=== PATIENT | female | born 1950 | race Caucasian/White ===

== ENCOUNTER 2017-02-15 15:57 | Observation (INO) | payer MEDICARE ==
[~2017-02-15] VITALS: Ht 167.6 cm; Wt 81.5 kg
[~2017-02-15 15:57] MED LIST: BETA20PO; BROC500T PO; CALC500T35 PO; CO Q300C PO; MULTI VITAMIMINERALS PO; [UNRECOGNIZED DRUG - OTHER] PO
[2017-02-15 16:04] VITALS: BP 199/85; PULSE 116; RESP 20; TEMP 98.9; O2SAT 98
--- NOTE | 2017-02-15 16:06 | PD ---
Physical Exam Date Seen by Provider: Feb 15, 2017 Time Seen by Provider: 16:01 Narrative 66 YOWF C/O L ARM NUMBNESS TINGLING SINCE LAST NIGHT .NO NECK PAIN. NO CP OR SOB. HERE FOR CT SCHEDULED FOR MRI AND CAROTID OUT PT. NO DM. +HTN VS REVIEWED WAITING FOR BED PLACEMENT MDM Supervised Visit with CHRISTINE: Andrés Meneses Feb 15, 2017 16:06
[2017-02-15 16:48] LABS: AUTOMATED NEUTROPHIL # 4.2 TH/MM3 (1.8-7.7); BASOPHIL # 0.1 TH/MM3 (0-0.2); BASOPHIL % 0.9 % (0.0-2.0); EOSINOPHIL # 0.1 TH/MM3 (0-0.4); EOSINOPHIL % 2.1 % (0.0-4.0); HEMATOCRIT 41.5 % (35.0-46.0); HEMO FLAGS DIFF FINAL; LYMPH % 28.2 % (9.0-44.0); LYMPHOCYTE # 1.9 TH/MM3 (1.0-4.8); MEAN CELL VOLUME 89.5 FL (80.0-100.0); MEAN CORPUSCULAR HEMOGLOBIN 29.8 PG (27.0-34.0); MEAN CORPUSCULAR HGB CONC 33.3 % (32.0-36.0); NEUT % 62.8 % (16.0-70.0); PLATELET COUNT 272 TH/MM3 (150-450); RED BLOOD COUNT 4.64 MIL/MM3 (4.00-5.30); WHITE BLOOD COUNT 6.6 TH/MM3 (4.0-11.0)
[2017-02-15 17:08] LABS: BICARBONATE 26.7 MEQ/L (21.0-32.0); POTASSIUM 3.8 MEQ/L (3.5-5.1)
--- NOTE | 2017-02-15 17:11 | RADRPT ---
EXAM DATE/TIME: 02/15/2017 17:00 [facility] COMPARISON: No previous studies available for comparison. INDICATIONS : Left arm numbness and tingling. RADIATION DOSE: 34.05 CTDIvol (mGy) MEDICAL HISTORY : Hypertension. SURGICAL HISTORY : Appendectomy. Left parotid removed. ENCOUNTER: Initial ACUITY: 2 days PAIN SCALE: 3/10 LOCATION: Bilateral cranial TECHNIQUE: Multiple contiguous axial images were obtained of the head. Using automated exposure control and adj ustment of the mA and/or kV according to patient size, radiation dose was kept as low as reasonably a chievable to obtain optimal diagnostic quality images. DICOM format image data is available electro nically for review and comparison. FINDINGS: CEREBRUM: The ventricles are normal for age. No evidence of midline shift, mass lesion, hemorrhage or acute in farction. No extra-axial fluid collections are seen. POSTERIOR FOSSA: The cerebellum and brainstem are intact. The 4th ventricle is midline. The cerebellopontine angle i s unremarkable. EXTRACRANIAL: The visualized portion of the orbits is intact. SKULL: The calvaria is intact. No evidence of skull fracture. CONCLUSION: Negative noncontrast CT. Sim Parra MD on February 15, 2017 at 17:08 Board Certified Radiologist. This report was verified electronically.
--- NOTE | 2017-02-15 17:13 | RADRPT ---
EXAM DATE/TIME: 02/15/2017 16:29 [facility] COMPARISON: CHEST SINGLE AP, February 22, 2010, 23:05. INDICATIONS : Short of breath. MEDICAL HISTORY : None. SURGICAL HISTORY : None. ENCOUNTER: Initial ACUITY: 1 day PAIN SCORE: 0/10 LOCATION: Bilateral chest FINDINGS: A single view of the chest demonstrates the lungs to be symmetrically aerated without evidence of mas s, infiltrate or effusion. The cardiomediastinal contours are unremarkable. Osseous structures are intact. CONCLUSION: No acute disease. Sim Parra MD on February 15, 2017 at 17:12 Board Certified Radiologist. This report was verified electronically.
[2017-02-15] MEDS ORDERED: AMLO10TA2 PO (17:25)
[2017-02-15] MEDS ORDERED: ASPIRIN EC 325 MG TABEC PO ONE (17:45)
--- NOTE | 2017-02-15 17:50 | PD ---
HPI Chief Complaint: Numbness/Tingling Time Seen by Provider: 17:20 Travel History International Travel<30 days: No Contact w/Intl Traveler<30days: No Traveled to known affect area: No History of Present Illness HPI 66-year-old female patient with history of hypertension, presents to the ER today brought in by because patient states she is having left arm paresthesias and numbness. She apparently has been seen by her primary care physician for the same in the last few days and has been scheduled for an outpatient MRI tomorrow. However, she started having symptoms again and talked her primary care physician and was told to come in. She denies any chest pains , shortness of breath, difficulty walking, difficulty talking, or any other symptoms. She states her blood pressure is always fairly high if taken on and automatic cuff. Modifying Factors: None Associated Signs & Symptoms: High blood pressure, left arm weakness and numbness Risk Factors: None PFSH Past Medical History Cardiovascular Problems: Yes (HTN) Diminished Hearing: No Hypertension: Yes Menopausal: Yes Past Surgical History Abdominal Surgery: Yes (appendix) Appendectomy: Yes (02/11/10) Cardiac Surgery: No Endocrine Surgery: No Genitourinary Surgery: No Gynecologic Surgery: No Oral Surgery: Yes (LEFT PAROTID REMOVED) Thoracic Surgery: No Tonsillectomy: Yes Other Surgery: Yes (left parotid removed) Social History Alcohol Use: No Tobacco Use: No Substance Use: No Allergies-Medications (Allergen,Severity, Reaction): Coded Allergies: cefepime (Unverified Allergy, Severe, 02/14/17) ceftaroline fosamil (Unverified Allergy, Severe, 02/14/17) penicillin G (Unverified Allergy, Severe, 02/14/17) acetaminophen (Unverified Allergy, Intermediate, rash, 02/14/17) hydrocodone (Unverified Allergy, Intermediate, rash, 02/14/17) ramipril (Unverified Allergy, Mild, tinitis, 02/14/17) hydrochlorothiazide (Unverified Allergy, Unknown, unknown, 02/14/17) ciprofloxacin (Unverified Adverse Reaction, Intermediate, Nausea/Vomiting , 02/14/17) Reported Meds & Prescriptions Reported Meds & Active Scripts Active Reported Amlodipine (Amlodipine Besylate) 10 Mg Tab 10 Mg PO DAILY Co Q-10 (Coenzyme Q10 (Ubidecarenone)) 300 Mg Cap 300 Mg PO DAILY Calcium (Oyster Shell) 500 Mg Tab 500 Mg PO DAILY PRN Broccoli Extract 500 Mg Tab 500 Mg PO DAILY [multi vitamiminerals] 1 Tab PO DAILY Sm Glucosamine & Vitamin (Nphqbrmdt-Owkyutqlvue-Ojpeslm) 1 Tab Tab 1 Tab PO DAILY Beta Glucan (Beta Glucan (Bulk)) 1 Pow Pow 1 Tab DAILY PRN Review of Systems Except as stated in HPI: all other systems reviewed are Neg Physical Exam Narrative GENERAL: Well-developed elderly white female patient currently in mild distress. Awake and oriented 3. SKIN: Focused skin assessment warm/dry. HEAD: Atraumatic. Normocephalic. EYES: Pupils equal and round. No scleral icterus. No injection or drainage. ENT: No nasal bleeding or discharge. Mucous membranes pink and moist. NECK: Trachea midline. No JVD. CARDIOVASCULAR: Regular rate and rhythm. No murmur appreciated. Pulses present and equal bilaterally. RESPIRATORY: No accessory muscle use. Clear to auscultation. Breath sounds equal bilaterally. GASTROINTESTINAL: Abdomen soft, non-tender, nondistended. Hepatic and splenic margins not palpable. MUSCULOSKELETAL: No obvious deformities. No clubbing. No cyanosis. No edema. NEUROLOGICAL: Awake and alert. No obvious cranial nerve deficits. Motor grossly within normal limits. Normal speech. No pronator drift. PSYCHIATRIC: Appropriate mood and affect; insight and judgment normal. Data Data Last Documented VS Vital Signs Date Time Temp Pulse Resp B/P Pulse Ox O2 Delivery O2 Flow Rate FiO2 02/15/17 17:23 18 02/15/17 16:04 98.9 116 199/85 98 Room Air Orders Electrocardiogram (02/15/17 16:06) Complete Blood Count With Diff (02/15/17 16:06) Basic Metabolic Panel (Bmp) (02/15/17 16:06) Prothrombin Time / Inr (Pt) (02/15/17 16:06) Act Partial Throm Time (Ptt) (02/15/17 16:06) Thyroid Stimulating Hormone (02/15/17 16:06) Chest, Single Ap (02/15/17 16:06) Ct Brain W/O Iv Contrast(Rout) (02/15/17 16:06) Iv Access Insert/Monitor (02/15/17 16:06) Admit Order (Ed Use Only) (02/15/17 17:41) Aspirin Ec (Ecotrin Ec) (02/15/17 17:45) Labs Laboratory Tests Test 02/15/17 16:35 White Blood Count 6.6 TH/MM3 Red Blood Count 4.64 MIL/MM3 Hemoglobin 13.8 GM/DL Hematocrit 41.5 % Mean Corpuscular Volume 89.5 FL Mean Corpuscular Hemoglobin 29.8 PG Mean Corpuscular Hemoglobin 33.3 % Concent Red Cell Distribution Width 13.0 % Platelet Count 272 TH/MM3 Mean Platelet Volume 8.0 FL Neutrophils (%) (Auto) 62.8 % Lymphocytes (%) (Auto) 28.2 % Monocytes (%) (Auto) 6.0 % Eosinophils (%) (Auto) 2.1 % Basophils (%) (Auto) 0.9 % Neutrophils # (Auto) 4.2 TH/MM3 Lymphocytes # (Auto) 1.9 TH/MM3 Monocytes # (Auto) 0.4 TH/MM3 Eosinophils # (Auto) 0.1 TH/MM3 Basophils # (Auto) 0.1 TH/MM3 CBC Comment DIFF FINAL Differential Comment Sodium Level 139 MEQ/L Potassium Level 3.8 MEQ/L Chloride Level 106 MEQ/L Carbon Dioxide Level 26.7 MEQ/L Anion Gap 6 MEQ/L Blood Urea Nitrogen 12 MG/DL Creatinine 0.91 MG/DL Estimat Glomerular Filtration 61 ML/MIN Rate Random Glucose 89 MG/DL Calcium Level 9.3 MG/DL Thyroid Stimulating Hormone 2.040 uIU/ML [address] [place] [address] Medical Decision Making Medical Screen Exam Complete: Yes Emergency Medical Condition: Yes Medical Record Reviewed: Yes Interpretation(s) EKG shows NSR, no ST elevation or depression, and no arrhythmias. No significant T-wave inversions. Laboratory Tests Test 02/15/17 16:35 Estimat Glomerular Filtration 61 ML/MIN (>89) Rate Last [address] 02/15/17 1606 Signed Impressions: Service Date/Time: Wednesday, February 15, 2017 17:00 - CONCLUSION: Negative noncontrast CT. Sim Parra MD Chest X-Ray 02/15/17 1606 Signed Impressions: Service Date/Time: Wednesday, February 15, 2017 16:29 - CONCLUSION: No acute disease. Sim Parra MD Differential Diagnosis Hypertensive urgency versus TIA versus radiculopathy versus metabolic issues versus ACS Narrative Course Patient's blood pressure is quite elevated and patient was given blood pressure medications in the ER. Initial CT scan did not show any signs of acute intracranial processes and aspirin was given. At this point, my plan would be to admit the patient for further treatment. Metabolic panel was unremarkable. Case was discussed with Dr. Waite for admission. He states the patient can be admitted to Dr. Lange service. Diagnosis Primary Impression: TIA (transient ischemic attack) Additional Impression: Hypertension Admitting Information Admitting Physician Requests: Admit Veronika España MD Feb 15, 2017 17:50
[2017-02-15] MEDS ORDERED: IOHEXOL 350 MG/ML 10 ML VIAL (for RAD DIAG) IV ONE (17:56)
[2017-02-15] MEDS ORDERED: METOPROLOL TARTRATE 5 MG/5 ML VIAL IV PUSH PRN (18:00)
[2017-02-15 18:30] VITALS: BP 180/84; PULSE 68; RESP 24; O2SAT 95
[2017-02-15 19:32] VITALS: BP 173/80; PULSE 65; RESP 18; O2SAT 97
--- NOTE | 2017-02-15 20:56 | HHI.HP ---
HPI Service [facility] Hospitalists Primary Care Physician NELLI Johnson Admission Diagnosis TIA Chief Complaint: left arm numbness intermittant today Travel History International Travel<30 Days: No Contact w/Intl Traveler <30 Da: No Traveled to Known Affected Are: No History of Present Illness 66-year-old female patient with history of hypertension, presents to the ER today brought in by because patient states she is having left arm paresthesias and numbness. She apparently has been seen by her primary care physician for the same today and has been scheduled for an outpatient MRI tomorrow. However, she started having symptoms again and talked her primary care physician and was told to come in. She denies any chest pains, shortness of breath, difficulty walking, difficulty talking, or any other symptoms. She states her blood pressure is always fairly high if taken on and automatic cuff. It seemed to be helped by motrin earlier and currently a little better. Of note blood pressure was high on arrival in er. Review of Systems Neurologic: COMPLAINS OF: Paresthesias Past Family Social History Past Medical History hypertension Past Surgical History left parotid surgery,appendix Reported Medications norvasc 10 vitamin supplements Allergies: Coded Allergies: cefepime (Unverified Allergy, Severe, 02/14/17) ceftaroline fosamil (Unverified Allergy, Severe, 02/14/17) penicillin G (Unverified Allergy, Severe, 02/14/17) acetaminophen (Unverified Allergy, Intermediate, rash, 02/14/17) hydrocodone (Unverified Allergy, Intermediate, rash, 02/14/17) ramipril (Unverified Allergy, Mild, tinitis, 02/14/17) hydrochlorothiazide (Unverified Allergy, Unknown, unknown, 02/14/17) ciprofloxacin (Unverified Adverse Reaction, Intermediate, Nausea/Vomiting , 02/14/17) Social History NS,ND Physical Exam Vital Signs Vital Signs Date Time Temp Pulse Resp B/P Pulse Ox O2 Delivery O2 Flow Rate FiO2 02/15/17 19:32 65 18 173/80 97 Room Air 02/15/17 18:30 68 24 180/84 95 02/15/17 17:23 18 02/15/17 16:04 98.9 116 20 199/85 98 Room Air Physical Exam GENERAL: This is a well-nourished, well-developed patient, in no apparent distress. SKIN: No rashes, ecchymoses or lesions. Cool and dry. HEAD: Atraumatic. Normocephalic. No temporal or scalp tenderness. EYES: Pupils equal round and reactive. Extraocular motions intact. No scleral icterus. No injection or drainage. ENT: Nose without bleeding, purulent drainage or septal hematoma. Throat without erythema, tonsillar hypertrophy or exudate. Uvula midline. Airway patent. NECK: Trachea midline. No JVD or lymphadenopathy. Supple, nontender, no meningeal signs. CARDIOVASCULAR: Regular rate and rhythm without murmurs, gallops, or rubs. RESPIRATORY: Clear to auscultation. Breath sounds equal bilaterally. No wheezes , rales, or rhonchi. GASTROINTESTINAL: Abdomen soft, non-tender, nondistended. No hepato-splenomegaly , or palpable masses. No guarding. MUSCULOSKELETAL: Extremities without clubbing, cyanosis, or edema. No joint tenderness, effusion, or edema noted. No calf tenderness. Negative Homans sign bilaterally. NEUROLOGICAL: Awake and alert. Cranial nerves II through XII intact. Motor and sensory grossly within normal limits. Five out of 5 muscle strength in all muscle groups. Normal speech. Laboratory Laboratory Tests Test 02/15/17 16:35 White Blood Count 6.6 Red Blood Count 4.64 Hemoglobin 13.8 Hematocrit 41.5 Mean Corpuscular Volume 89.5 Mean Corpuscular Hemoglobin 29.8 Mean Corpuscular Hemoglobin 33.3 Concent Red Cell Distribution Width 13.0 Platelet Count 272 Mean Platelet Volume 8.0 Neutrophils (%) (Auto) 62.8 Lymphocytes (%) (Auto) 28.2 Monocytes (%) (Auto) 6.0 Eosinophils (%) (Auto) 2.1 Basophils (%) (Auto) 0.9 Neutrophils # (Auto) 4.2 Lymphocytes # (Auto) 1.9 Monocytes # (Auto) 0.4 Eosinophils # (Auto) 0.1 Basophils # (Auto) 0.1 CBC Comment DIFF FINAL Differential Comment Sodium Level 139 Potassium Level 3.8 Chloride Level 106 Carbon Dioxide Level 26.7 Anion Gap 6 Blood Urea Nitrogen 12 Creatinine 0.91 Estimat Glomerular Filtration 61 Rate Random Glucose 89 Calcium Level 9.3 Thyroid Stimulating Hormone 2.040 3rd Gen Result Diagram: 02/15/17 1635 02/15/17 1635 Imaging Last [address] 8/16/17 1606 Signed Impressions: Service Date/Time: Wednesday, February 15, 2017 17:00 - CONCLUSION: Negative noncontrast CT. Sim Parra MD Chest X-Ray 02/15/17 1606 Signed Impressions: Service Date/Time: Wednesday, February 15, 2017 16:29 - CONCLUSION: No acute disease. Sim Parra MD Assessment and Plan Problem List: (1) TIA (transient ischemic attack) Status: Acute Plan: tia vs radiculopathy -mri 2d echo asa (2) Hypertension Status: Chronic Plan: continue norvasc Assessment and Plan further plan as case develops Code Status full Discussed Condition With Manjinder Moore MD Feb 15, 2017 20:56
[2017-02-15] MEDS ORDERED: ENALAPRILAT 1.25 MG/ML VIAL IV PRN (21:00)
[2017-02-15] MEDS ORDERED: SODIUM CHLORIDE 0.9% FLUSH 5 ML FLUSH IV FLUSH PRN (21:00)
[2017-02-15] MEDS: SODIUM CHLORIDE 0.9% FLUSH 5 ML FLUSH IV FLUSH SCH (21:00)
[2017-02-15 21:36] VITALS: BP 170/88; PULSE 65; RESP 18; O2SAT 99
[2017-02-16 02:21] VITALS: BP 157/73; PULSE 89; RESP 18; TEMP 97.1; O2SAT 98
[2017-02-16 04:54] LABS: APTT (PATIENT) 24.2 SEC (24.3-30.1); PROTHROMBIN TIME - PATIENT 10.9 SEC (9.8-11.6)
[2017-02-16 05:16] LABS: HDL CHOLESTEROL 62.5 MG/DL (40.0-60.0)
[2017-02-16 08:24] VITALS: BP 162/75; PULSE 86; RESP 20; TEMP 97.9; O2SAT 96
[2017-02-16] MEDS: ASPIRIN 325 MG TAB PO SCH (09:01)
[2017-02-16] MEDS: SODIUM CHLORIDE 0.9% FLUSH 5 ML FLUSH IV FLUSH SCH ×2 (09:01→22:21)
--- NOTE | 2017-02-16 09:14 | EKG ---
Date Performed: 02/15/2017 Time Performed: 17:35:35 PTAGE: 66 years EKG: Sinus rhythm NORMAL ECG PREVIOUS TRACING : 02/11/2010 16.46 Compared to prior tracing no significant change DOCTOR: Palmer Almanza Interpretating Date/Time 02/16/2017 09:04:42
--- NOTE | 2017-02-16 10:31 | RADRPT ---
EXAM DATE/TIME: 02/16/2017 09:51 [facility] COMPARISON: CT BRAIN W/O CONTRAST, February 15, 2017, 17:00. INDICATIONS : TIA. Left arm numbness and tingling. MEDICAL HISTORY : Hypertension. SURGICAL HISTORY : Appendectomy. Left parotid gland removal. ENCOUNTER: Subsequent ACUITY: 2 day PAIN SCORE: 0/10 LOCATION: head. TECHNIQUE: Multiplanar, multisequence MRI of the brain was performed without contrast. FINDINGS: CEREBRUM: The ventricles are normal for age. No evidence of midline shift, mass lesion, hemorrhage or acute in farction. No extraaxial fluid collections are seen. The pituitary gland and suprasellar cistern are normal in configuration. WHITE MATTER: Scattered foci of high flair signal involving the periventricular and subcortical white matter of bot h cerebral hemispheres. POSTERIOR FOSSA: The cerebellum and brainstem are intact. The 4th ventricle is midline. The cerebellopontine angle is unremarkable. The cerebellar tonsils are normal in position. DIFFUSION IMAGING: No focal areas of restricted diffusion are seen. No evidence of acute infarction. EXTRACRANIAL: The visualized portions of the orbits and paranasal sinuses are unremarkable. CONCLUSION: 1. No acute intracranial abnormality. 2. Chronic small vessel ischemic change. Crow Mc Jr., MD on February 16, 2017 at 10:26 Board Certified Radiologist. This report was verified electronically.
[2017-02-16 11:32] VITALS: BP 150/71; PULSE 75; RESP 16; TEMP 98; O2SAT 95
--- NOTE | 2017-02-16 11:32 | HHI.PR ---
Subjective Remarks Pt reports that she developed some numbness/tingling in the left hand and LUE that began 1-2 days ago This has improved slightly since admission She denies any weakness in the upper or lower extremities No headache, dizziness, chest pain or palpitations. Objective Vitals Vital Signs Date Time Temp Pulse Resp B/P Pulse Ox O2 Delivery O2 Flow Rate FiO2 02/16/17 08:24 97.9 86 20 162/75 96 02/16/17 02:21 97.1 89 18 157/73 98 02/15/17 21:36 65 18 170/88 99 Room Air 02/15/17 19:32 65 18 173/80 97 Room Air 02/15/17 18:30 68 24 180/84 95 02/15/17 17:23 18 02/15/17 16:04 98.9 116 20 199/85 98 Room Air 02/15/17 02/15/17 02/16/17 15:00 23:00 07:00 Intake Total 200 ml Balance 200 ml Intake Oral 200 ml Result Diagram: 02/15/17 1635 02/15/17 1635 Other Results Laboratory Tests Test 02/15/17 02/16/17 16:35 03:28 White Blood Count 6.6 TH/MM3 Red Blood Count 4.64 MIL/MM3 Hemoglobin 13.8 GM/DL Hematocrit 41.5 % Mean Corpuscular Volume 89.5 FL Mean Corpuscular Hemoglobin 29.8 PG Mean Corpuscular Hemoglobin 33.3 % Concent Red Cell Distribution Width 13.0 % Platelet Count 272 TH/MM3 Mean Platelet Volume 8.0 FL Neutrophils (%) (Auto) 62.8 % Lymphocytes (%) (Auto) 28.2 % Monocytes (%) (Auto) 6.0 % Eosinophils (%) (Auto) 2.1 % Basophils (%) (Auto) 0.9 % Neutrophils # (Auto) 4.2 TH/MM3 Lymphocytes # (Auto) 1.9 TH/MM3 Monocytes # (Auto) 0.4 TH/MM3 Eosinophils # (Auto) 0.1 TH/MM3 Basophils # (Auto) 0.1 TH/MM3 CBC Comment DIFF FINAL Differential Comment Sodium Level 139 MEQ/L Potassium Level 3.8 MEQ/L Chloride Level 106 MEQ/L Carbon Dioxide Level 26.7 MEQ/L Anion Gap 6 MEQ/L Blood Urea Nitrogen 12 MG/DL Creatinine 0.91 MG/DL Estimat Glomerular Filtration 61 ML/MIN Rate Random Glucose 89 MG/DL Calcium Level 9.3 MG/DL Thyroid Stimulating Hormone 2.040 uIU/ML 3rd Gen Prothrombin Time 10.9 SEC Prothromb Time International 1.0 RATIO Ratio Activated Partial 24.2 SEC Thromboplast Time Triglycerides Level 108 MG/DL Cholesterol Level 159 MG/DL LDL Cholesterol 75 MG/DL HDL Cholesterol 62.5 MG/DL Cholesterol/HDL Ratio 2.54 RATIO Imaging Last Impressions Brain MRI 02/16/17 0000 Signed Impressions: Service Date/Time: January 09:51 - CONCLUSION: 1. No acute intracranial abnormality. 2. Chronic small vessel ischemic change. Crow Mc Jr., MD Head CT 02/15/17 1606 Signed Impressions: Service Date/Time: Wednesday, February 15, 2017 17:00 - CONCLUSION: Negative noncontrast CT. Sim Parra MD Chest X-Ray 02/15/17 1606 Signed Impressions: Service Date/Time: Wednesday, February 15, 2017 16:29 - CONCLUSION: No acute disease. Sim Parra MD Objective Remarks General: NAD, AAOx3 Chest: CTA Cardiac: Regular Abd: +BS, soft, ND/NT Ext: No edema A/P Problem List: (1) Paresthesia of arm Status: Acute Plan: - Pt is a 66 y/o female with hypertension who presented to the ED today with complaints of left arm paresthesias and numbness - Pts BP was elevated at admission. - Head CT (02/15) --> Negative - MRI Brain (02/16) --> No acute intracranial abnormality. Chronic small vessel ischemic change. - Cervical spine MRI (02/16) --> Pending - OT/PT evaluation. - Carotid US - 2D echo pending - Check Vitamin B12, folate, RPR, Ammonia level (2) Hypertension Status: Chronic Plan: - Continue Norvasc - BP still elevated this morning - We will change her Norvasc to Procardia XL - Monitor Assessment and Plan Patient examined. Assessment and plan formulated with Carmenza Mills PA-C. I agree with the above. Problem Qualifiers (1) Hypertension: Qualified Code: I10 - Essential hypertension Carmenza Mills Feb 16, 2017 11:32 Ramakrishna Lange DO Feb 17, 2017 10:20
--- NOTE | 2017-02-16 12:16 | RADRPT ---
EXAM DATE/TIME: 02/16/2017 09:51 [facility] COMPARISON: No previous studies available for comparison. INDICATIONS : Left upper extremity numbness and tingling. MEDICAL HISTORY : Hypertension. SURGICAL HISTORY : Appendectomy. Left parotid gland. ENCOUNTER: Subsequent ACUITY: 2 day PAIN SCORE: 0/10 LOCATION: Neck. TECHNIQUE: Multiplanar, multisequence MRI examination of the cervical spine was performed. FINDINGS: The sagittal images demonstrate straightening of the normal cervical lordosis. There is cervical spo ndylosis at C5-6 and C6-7 and to a lesser extent C4-5. There is no acute fracture or prevertebral so ft tissue swelling. The bony relationship and alignment between C1 and C2 is well maintained. The c ervical spinal cord is normal in signal intensity and morphology. The craniocervical junction is nor mal. C2-3: There is no significant spinal stenosis or neural foraminal narrowing. C3-4: There is no significant spinal stenosis or neural foraminal narrowing. C4-5: There is a tiny central disc bulge which results in minimal effacement of the anterior thecal sac but no spinal stenosis or neural foraminal narrowing. C5-6: There is a small broad based right paracentral disc bulge which results in effacement of the anterior thecal sac but no spinal stenosis or significant neural foraminal narrowing. C6-7: There is a mild diffuse disc bulge which resulted in no significant spinal stenosis or neural foramin al narrowing. C7-T1: There is no significant spinal stenosis or neural foraminal narrowing. CONCLUSION: 1. Small broad based right paracentral disc bulge at C5-6 resulting in no spinal stenosis or neural f oraminal narrowing. 2. Minimal diffuse disc bulge at C6-7 resulting in no spinal stenosis or neural foraminal narrowing.. 3. Tiny central disc bulge at C4-5 resulting in no spinal stenosis or neural foraminal narrowing. 4. Cervical spondylosis at C6-7, C5-6 and C4-5. 5. Straightening of the normal cervical lordosis. Valentin Mason MD on February 16, 2017 at 11:04 Board Certified Radiologist. This report was verified electronically.
[2017-02-16] MEDS ORDERED: NIFEdipine 30 MG SUSTAINED RELEASE TAB PO ONE (13:00)
[2017-02-16 15:02] VITALS: BP 137/68; PULSE 87; RESP 16; TEMP 97.8; O2SAT 96
--- NOTE | 2017-02-16 15:17 | RADRPT ---
EXAM DATE/TIME: 02/16/2017 14:23 [facility] COMPARISON: No previous studies available for comparison. INDICATIONS : Transient ischemic attack. MEDICAL HISTORY : Osteoarthritis. Hypertension. Tinitis. Paresthesia. SURGICAL HISTORY : Appendectomy. Tonsillectomy. Left parotid removed. Epidectomy. ENCOUNTER: Initial ACUITY: 1 day PAIN SCORE: 0/10 LOCATION: Bilateral neck PEAK SYSTOLIC VELOCITIES (cm/sec): ICA/CCA RATIO: Right: 1.0 Left: 1.0 ICA: Right: 79 Left: 90 CCA: Right: 90 Left: 130 ECA: Right: 78 Left: 111 VERTEBRAL: Right: 59 antegrade Left: 67 antegrade Elevated flow velocities and ICA/CCA ratios have been found to correlate with increased degrees of vessel stenosis, calculated as percentage of diameter relative to a normal segment of distal ICA/CCA FINDINGS: RIGHT CAROTID: No significant stenosis is visualized. The waveforms are within normal limits. LEFT CAROTID: No significant stenosis is visualized. The waveforms are within normal limits. VERTEBRAL ARTERIES: Antegrade flow is seen in both vertebral arteries. MISCELLANEOUS: None. CONCLUSION: 1. No hemodynamically significant carotid artery stenosis. [place] MD on February 16, 2017 at 15:14 Board Certified Radiologist. This report was verified electronically.
--- NOTE | 2017-02-16 16:00 | ECHRPT ---
Indication: CVA/TIA CONCLUSIONS Normal left ventricular size. Wall thickness is normal. The left ventricular systolic function is normal with an estimated ejection fraction in the range of 55-60%. No regional wall motion abnormalities are present. Trace mitral valve regurgitation. BP: / HR: Rhythm: Sinus Technical Quality:Good FINDINGS LEFT VENTRICLE Normal left ventricular size. Wall thickness is normal. The left ventricular systolic function is normal with an estimated ejection fraction in the range of 55-60%. No regional wall motion abnormalities are present. RIGHT VENTRICLE Normal right ventricular size and systolic function. LEFT ATRIUM The left atrial size is normal. RIGHT ATRIUM The right atrial size is normal. ATRIAL SEPTUM Normal atrial septal thickness without atrial level shunting by limited color doppler interrogation. AORTA The aortic root and proximal ascending aorta are normal in size on limited imaging. MITRAL VALVE Trace mitral valve regurgitation. AORTIC VALVE Trileaflet aortic valve. No aortic valve stenosis or regurgitation. TRICUSPID VALVE Structurally normal tricuspid valve. No tricuspid valve stenosis or regurgitation. PULMONARY VALVE The pulmonary valve is not well visualized. VESSELS The inferior vena cava is normal in size. PERICARDIUM No pericardial effusion. Ignacio Zhao MD (Electronically Signed) Final Date:16 February 2017 15:59
[2017-02-16 20:17] VITALS: BP 131/67; PULSE 88; RESP 18; TEMP 98.1; O2SAT 93
[2017-02-17 00:12] VITALS: BP 126/61; PULSE 71; RESP 20; TEMP 97.9; O2SAT 96
[2017-02-17 06:21] VITALS: BP 118/65; PULSE 85; RESP 18; TEMP 97.9; O2SAT 98
[2017-02-17 08:15] VITALS: PULSE 78
[2017-02-17] MEDS: SODIUM CHLORIDE 0.9% FLUSH 5 ML FLUSH IV FLUSH SCH (08:24)
[2017-02-17] MEDS: ASPIRIN 325 MG TAB PO SCH (08:24)
[2017-02-17] MEDS ORDERED: NIFEdipine 60 MG SUSTAINED RELEASE TAB PO SCH (09:00)
--- NOTE | 2017-02-17 10:16 | HHI.PR ---
Subjective Remarks No new complaints. Pt denies any limb weakness. No difficulties with ambulation. No difficulties with speech or swallow. Pt is eager for discharge to home. Objective Vitals Vital Signs Date Time Temp Pulse Resp B/P Pulse Ox O2 Delivery O2 Flow Rate FiO2 02/17/17 06:21 97.9 85 18 118/65 98 02/17/17 00:12 97.9 71 20 126/61 96 02/16/17 20:17 98.1 88 18 131/67 93 02/16/17 15:02 97.8 87 16 137/68 96 02/16/17 11:32 98.0 75 16 150/71 95 02/16/17 02/16/17 02/17/17 15:00 23:00 07:00 # Voids 3 Result Diagram: 02/15/17 1635 02/15/17 1635 Imaging Last Impressions Cervical Spine MRI 02/16/17 0000 Signed Impressions: Service Date/Time: January 09:51 - CONCLUSION: 1. Small broad based right paracentral disc bulge at C5-6 resulting in no spinal stenosis or neural foraminal narrowing. 2. Minimal diffuse disc bulge at C6-7 resulting in no spinal stenosis or neural foraminal narrowing.. 3. Tiny central disc bulge at C4-5 resulting in no spinal stenosis or neural foraminal narrowing. 4. Cervical spondylosis at C6-7, C5-6 and C4-5. 5. Straightening of the normal cervical lordosis. Valentin Mason MD Carotid Artery Ultrasound 02/16/17 0000 Signed Impressions: Service Date/Time: January 14:23 - CONCLUSION: 1. No hemodynamically significant carotid artery stenosis. [place] MD Brain MRI 02/16/17 0000 Signed Impressions: Service Date/Time: January 09:51 - CONCLUSION: 1. No acute intracranial abnormality. 2. Chronic small vessel ischemic change. Crow Mc Jr., MD Head CT 02/15/17 1606 Signed Impressions: Service Date/Time: Wednesday, February 15, 2017 17:00 - CONCLUSION: Negative noncontrast CT. Sim Parra MD Chest X-Ray 02/15/17 1606 Signed Impressions: Service Date/Time: Wednesday, February 15, 2017 16:29 - CONCLUSION: No acute disease. Sim Parra MD Objective Remarks General: NAD, AAOx3 Chest: CTA Cardiac: Regular Abd: +BS, soft, ND/NT Ext: No edema A/P Problem List: (1) Paresthesia of arm Status: Acute Plan: - Pt is a 66 y/o female with hypertension who presented to the ED today with complaints of left arm paresthesias and numbness - Pts BP was elevated at admission. - Head CT (02/15) --> Negative - MRI Brain (02/16) --> No acute intracranial abnormality. Chronic small vessel ischemic change. - Cervical spine MRI (02/16) --> minimal OA changes - b/l Carotid US --> NO hemodynamically significant stenosis - PT evaluation. Pt did well. See report - Echocardiogram (02/16/17) --> EF 55-60% - NO evidence to support CVA or TIA - will discharge to home - f/u with [facility] PCP, Dr. Ramakrishna Park - see discharge orders (2) Hypertension Status: Chronic Plan: - improved - changed norvasc to procardia XL with improved BP control - procardia XL 60mg daily - keep home BP log - f/u with PCP in 1 week Problem Qualifiers (1) Hypertension: Ramakrishna Lange DO Feb 17, 2017 10:16
--- NOTE | 2017-02-17 10:20 | HHI.DCPOC ---
Discharge Care Plan Diagnosis: (1) Paresthesia of arm (2) Hypertension Goals to Promote Your Health * To prevent worsening of your condition and complications * To maintain your health at the optimal level Directions to Meet Your Goals Take your medications as prescribed Follow your dietary instruction Follow activity as directed Keep your appointments as scheduled Take your immunizations and boosters as scheduled If your symptoms worsen call your PCP, if no PCP go to Urgent Care Center or Emergency Room Smoking is Dangerous to Your Health. Avoid second hand smoke Call the 24-hour hour crisis hotline for domestic abuse at Ramakrishna Lange DO Feb 17, 2017 10:20
[2017-02-17] MEDS ORDERED: NIFE60TA8 PO (10:21)
[2017-02-17 12:25] VITALS: BP 133/67; PULSE 77; RESP 18; TEMP 98.7; O2SAT 96
== END 2017-02-17 13:36 | disposition home or self-care (01) ==
LOC: NEPE 15:57 → NEDA 17:44 → NEDH 22:13 → NEPHCDU 02-16 02:13
PROVIDERS: ADMIT Hospitalist; ATTEND Hospitalist
DX: R20.2 Paresthesia of skin (principal); I10 Essential (primary) hypertension
CPT/HCPCS: 70450; 70551; 71010; 72141; 80048; 80061; 84443; 85025; 85610; 85730; 93005; 93306; 93880; 96374; 97161; 97165; 99285; G0378; G8987; G8988; Q9967

== ENCOUNTER → 2017-11-29 | Day surgery (SDC) | payer MEDICARE ==
[~2017-11-29] MED LIST changes: -BETA20PO; -BROC500T PO; +BUPIVACAINE HCL PF 0.5% 10 ML VIAL ONE; -CALC500T35 PO; +CLINDAMYCIN PHOS 900 MG/6 ML VIAL ONE; -CO Q300C PO; +ISOSULFAN BLUE 50 MG/5 ML VIAL SQ ONE; +KETOROLAC TROMETHAMINE 30 MG/ML (IVP) VIAL ONE; +LACTATED RINGER'S 1000 ML INJ 1,000 ML ONE; +MEPERIDINE HCL 50 MG/ML VIAL ONE; +MIDAZOLAM HCL 2 MG/2 ML VIAL ONE; -MULTI VITAMIMINERALS PO; +NIFE60TA8 PO; +ONDANSETRON HCL 4 MG/2 ML VIAL IV PUSH ONE; +PROPOFOL 200 MG/20 ML AMP IV ONE; -[UNRECOGNIZED DRUG - OTHER] PO
--- NOTE | 2017-11-29 15:29 | MP ---
cc: Viviana Armstrong MD DATE OF OPERATION: 11/29/2017 DATE OF SURGERY: 11/29/2017 PRINCIPAL DIAGNOSIS: Left breast cancer. PROCEDURE PERFORMED: Left breast needle localized lumpectomy and left axillary sentinel lymph node biopsy. SURGEON: Viviana Armstrong MD ANESTHESIA: General via LMA device. INDICATION FOR PROCEDURE: The patient is a 67-year-old female diagnosed with clinical stage I left breast cancer in 05/2017. She declined surgical therapy or radiation and opted for complimentary therapy. However, the mass has grown somewhat since initial diagnosis and she now presents for definitive surgical therapy. FINDINGS AT THE TIME OF SURGERY: There were 2 sentinel lymph nodes. Number 1 had a count of 719 and number 2 was suspicious with no count. Both nodes were in the axillary tail of the breast. Specimen mammogram did demonstrate an intact wire and the clip was identified in a reexcised inferior margin. DESCRIPTION OF PROCEDURE: After informed consent was obtained and site verification was performed, the patient was brought to the radiology suite where she underwent needle localization of her prior biopsy site as well as peritumoral radionuclide injection. She was then brought to the major operating room where she was given a single dose of IV Ancef and sequential compression hose were placed. The left breast was prepped and draped in sterile fashion. An incision was anesthetized at the inferior aspect of the left axillary hairline, and both sharp and electrocautery dissection was performed until the level 1 axilla was entered. One mid level 1 lymph node with circumferentially dissected free from surrounding structures using the Harmonic scalpel, but this had no count and was sent as a permanent axillary specimen. There was a palpable area in the axillary tail of the breast and this area was circumferentially dissected free from surrounding structures using the Harmonic scalpel and there were two nodes in the specimen. Lymph node number 1 had the high count and the second node was suspicious, and these were sent permanently as sentinel nodes 1 and 2. Good hemostasis was noted, and the wound was closed using interrupted 3-0 Vicryl subcutaneous sutures and a 4-0 Monocryl subcuticular suture. An incision was then anesthetized at the upper outer aspect of the breast near the axilla, since the lesion was identified at 1 o'clock, 9 cm from the nipple. Marcaine 0.5% plain was used to infiltrate the breast and both sharp and electrocautery dissection were performed until the wire entry point through the skin was identified and secured with a hemostat. The wire was cut off at the skin with pin cutters and a 2-0 silk transfixion suture was placed at the wire entry point into the breast tissue. Both sharp and electrocautery dissection was performed circumferentially around the wire and the specimen was oriented with 2 sutures anteriorly, 1 short suture superiorly, and 1 long suture laterally. Inspection of the specimen did demonstrate that the inferior and medial margin appeared close and each of these was sharply reexcised with a stitch on the new margin. These were sent along with the lumpectomy specimen to radiology and the clip was identified in the reexcised inferior margin. All the specimens were then sent separately for permanent pathologic evaluation. Good hemostasis was noted, and the wound was closed using interrupted 3-0 Vicryl subcutaneous sutures and a 4-0 Monocryl subcuticular suture. Steri-Strips and a sterile dressing were applied. The patient tolerated the procedure well, with an estimated blood loss of 100 mL and she was extubated in the operating room and brought to the recovery room in good condition. All sponge and needle counts were correct at the conclusion of the case. MD DELMIS Gibson/MADALYN , 03:07 PM , 03:28 PM
== END | disposition home or self-care (01) ==
LOC: ESDC 08:58
PROVIDERS: ATTEND Surgery
DX: C50.912 Malignant neoplasm of unspecified site of left female breast (principal)
CPT/HCPCS: 00400; 01610; 19125; 38525; 38792; 88305; 88307; J1885; J2175; J2250; J2405; J3010; J7120; Q9968